=== PATIENT | female | born 1970 | race Hispanic/Latino ===

== ENCOUNTER 2018-01-04 08:59 | Outpatient (CLI) | payer OTHER ==
--- NOTE | 2018-01-04 14:39 | Mammography Report ---
BONE DEXA:01/04/18 08:59:00 CLINICAL: Postmenopausal. No comparison. TECHNIQUE: Two site bone DEXA performed on an Hologic scanner. FINDINGS: The average BMD of the lumbar spine L1-L4 is 0.960g/cm squared with a T-score of -0.8 and a Z-score of -0.3. The average BMD of the left hip is 0.682g/cm squared with a T-score of -2.1 and a Z-score of -1.8. IMPRESSION: 1. WHO classification: Normal with average fracture risk based on lumbar spine measurements. 2. WHO classification: Osteopenia with increased fracture risk based on left hip measurements. RECOMMENDATION: Clinical correlation and routine screening. DEFINITIONS: BMD = Bone Mineral Density T-score = BMD related to mean peak bone mass of young adult (mean expressed in Standard Deviation) Z-score = Age matched BMD expressed in SD World Health Organization (WHO) Diagnostic Criteria Normal T-score > -1 SD Osteopenia T-score between -1 and -2.4 SD Osteoporosis T-score -2.5 SD or below NOTE: BMD is not the only risk factor for fracture. One should also consider factors such as the patient's age, risk of falling, previous osteoporotic fracture, family history of osteoporotic fractures, current smoker, and low body weight. Z-scores are not calculated if >80 years of age.
== END 2018-01-04 09:00 | disposition home or self-care (01) ==
LOC: SPVWC 08:59
PROVIDERS: ATTEND Internal Medicine Hematology & Oncology
DX: M85.88 Other specified disorders of bone density and structure, other site (principal); F17.210 Nicotine dependence, cigarettes, uncomplicated; Z78.0 Asymptomatic menopausal state
CPT/HCPCS: 77080

== ENCOUNTER 2020-01-05 08:46 | Outpatient (CLI) | payer OTHER ==
--- NOTE | 2020-01-05 10:23 | Mammography Report ---
DEXA BONE DENSITY SCAN INDICATION: LEFT BREAST CANCER/MENOPAUSAL-POST MENOPAUSAL. COMPARISON: DEXA scan dated 01/04/2018 and 01/15/2016. LUMBAR SPINE (L1-L4): Bone mineral density (BMD) is 0.947 g/cm2. T-score is -0.9 (standard deviations of Young Adult mean). Z-score is -0.3 (standard deviations of Age Matched mean). This is a decrease of 1.3% from the prior and of 1.7% from baseline. LEFT FEMORAL NECK: Bone mineral density (BMD) is 0.704 g/cm2. T-score is -2.0 (standard deviations of Young Adult mean). Z-score is -1.5 (standard deviations of Age Matched mean). This is an increase of 3.3% from the prior and a decrease of 8.9% from baseline. IMPRESSION: WHO Classification: Osteopenia. Fracture Risk: Increased. Signer Name: Alexander Kinsey MD Signed: 01/05/2020 10:19 AM Workstation Name: [id number]
== END 2020-01-05 08:47 | disposition home or self-care (01) ==
LOC: SPVWC 08:46
PROVIDERS: ATTEND Internal Medicine Hematology & Oncology
DX: C50.512 Malignant neoplasm of lower-outer quadrant of left female breast (principal); M85.80 Other specified disorders of bone density and structure, unspecified site; M89.9 Disorder of bone, unspecified; Z78.0 Asymptomatic menopausal state
CPT/HCPCS: 77080